=== PATIENT | female | born 1985 | race Caucasian/White ===

== ENCOUNTER 2022-03-14 11:37 | Emergency (ER) | payer OTHER, SELFPAY ==
[2022-03-14 11:45] VITALS: BP 184/106; PULSE 82; RESP 16; TEMP 36.2; O2SAT 97; BMI 53.1
--- NOTE | 2022-03-14 14:11 | ED.HA ---
HPI - Headache General Chief Complaint: Headache Stated Complaint: severe migraine for 3days Time Seen by Provider: 03/14/22 14:05 History of Present Illness HPI Narrative: Linda Gonzalez is a 36-year-old woman with chronic about a week ago she developed sinus symptoms and developed a sinus headache associated with it. She said after the 1st few days this turned into a cough the cough exacerbated the headache and for the past 3 days she describes what she characterizes as a ?full-blown migraine? she says that she is used Imitrex and Zofran to no effect. She denies any recent injury. She denies fever. She denies any neurologic symptoms other than visual scotomata that she commonly has with her migraine. She endorses significant nausea and repeated vomiting. Related Data Previous Rx's Medication Instructions Recorded metoclopramide HCl 10 mg tablet 10 mg PO Q6H PRN nausea and 03/14/22 (Reglan) vomiting #10 tabs Review of Systems Review of Systems Narrative: Complete review of systems is negative other than as noted above. Exam Narrative Exam Narrative: GENERAL: Alert, cooperative and in no distress. HEAD: Atraumatic. Normocephalic. EYES: Sclera are clear without icterus. Extraocular movements are full. ENT: No rhinorrhea. Oropharynx is moist. Mouth exam is benign. NECK: Supple. Full range of motion. CARDIOVASCULAR: Normal rate and rhythm without murmur gallop or rub. RESPIRATORY: Clear to auscultation. Breath sounds equal bilaterally. No wheezes, rales, or rhonchi. GASTROINTESTINAL: Abdomen soft, non-tender, nondistended. EXTREMITIES: No edema, full range of motion. No obvious trauma. BACK: Normal inspection, no CVA tenderness. NEURO: Nonfocal examination, normal speech, normal gait. Cranial nerves are intact. Coordination in the upper extremities is normal, gait is normal SKIN: No rash or erythema of visible areas PSYCH: Normally oriented. Normal range of affect. Appropriate behavior Initial Vital Signs Initial Vital Signs: Vital Signs Temperature 97.2 F L 03/14/22 11:45 Pulse Rate 82 03/14/22 11:45 Respiratory Rate 16 03/14/22 11:45 Blood Pressure 184/106 H 03/14/22 11:45 Pulse Oximetry 97 03/14/22 11:45 Oxygen Delivery Method 03/14/22 11:45 Course Course Course Narrative: Current time is 3:15 p.m.. She is moderately improved but still hurting quite a bit. Saline is only about 50% infused. Will add Toradol at this point. Orders Ordered: Discontinued Medications Acetaminophen (Acetaminophen 325 Mg Tablet) 975 mg PO NOW ONE Stop: 03/14/22 14:11 Last Admin: 03/14/22 14:30 Dose: 975 mg Documented By: CTS Diphenhydramine HCl (Diphenhydramine 50 Mg/Ml Vial) 25 mg IV NOW ONE Stop: 03/14/22 14:11 Last Admin: 03/14/22 14:30 Dose: 25 mg Documented By: CTS Sodium Chloride (Normal Saline 0.9%) 1,000 mls @ 1,000 mls/hr IV BOLUS ONE Stop: 03/14/22 15:09 Last Admin: 03/14/22 14:30 Dose: 1,000 mls/hr Documented By: CTS Ketorolac Tromethamine (Ketorolac 30 Mg/Ml Vial) 30 mg IV NOW ONE Stop: 03/14/22 15:14 Last Admin: 03/14/22 15:21 Dose: 30 mg Documented By: SB Metoclopramide HCl (Metoclopramide 10 Mg/2 Ml Inj) 10 mg IV NOW ONE Stop: 03/14/22 14:11 Last Admin: 03/14/22 14:30 Dose: 10 mg Documented By: CTS Reevaluation(s) Reevaluation #1: Re-evaluation just now at 4:01 p.m. patient is feeling moderately improved. She would like to go home at this point. Vital Signs Vital signs: Vital Signs - 8 hr 03/14/22 11:45 Temperature 97.2 F L Pulse Rate 82 Respiratory Rate 16 Blood Pressure 184/106 H Pulse Oximetry 97 Oxygen Delivery Method Room Air MDM - Headache MDM Narrative Medical decision making narrative: No acute neurologic condition is suspected at this time. She is a normal nonfocal neurologic examination. She is a history of migraine. I think treatment for same is appropriate. She is moderately improved with treatments offered here today. Careful return precautions given. Discharge Plan Departure Patient Disposition: Home Clinical Impression: Migraine Instructions: DI for Migraine Activity Restrictions/Additional Instructions: In the emergency department today you received Tylenol, metoclopramide, Benadryl, IV saline and IV ketorolac. At home I recommend at least 3 L of oral liquid daily along with metoclopramide 10 mg every 6 hours as needed and Tylenol 1000 mg taken together with ibuprofen 600 mg every 6 hours. Make sure getting lots of extra rest and stay out of the bright light. Follow-up with your doctor in a couple of days if things are not dramatically improved. Return to the emergency department for new or worsening symptoms as described. Prescriptions: New metoclopramide HCl [Reglan] 10 mg tablet 10 mg PO Q6H PRN (Reason: nausea and vomiting) Qty: 10 0RF
[2022-03-14] MEDS: ACETAMINOPHEN 325 MG TABLET 975 MG PO (14:30)
[2022-03-14] MEDS: SODIUM CHLORIDE 0.9% 1,000 ML 1000 ML IV (14:30)
[2022-03-14] MEDS: METOCLOPRAMIDE 10 MG/2 ML INJ IV (14:30)
[2022-03-14] MEDS: diphenhydrAMINE 50 MG/ML VIAL 25 MG IV (14:30)
[2022-03-14] MEDS: KETOROLAC 30 MG/ML VIAL IV (15:21)
[2022-03-14 15:35] VITALS: BP 143/95; PULSE 63; O2SAT 100
== END 2022-03-14 16:23 | disposition home or self-care (01) ==
PROVIDERS: Emergency Provider Family Medicine Addiction Medicine
DX: G43.909 Migraine, unspecified, not intractable, without status migrainosus (principal)
CPT/HCPCS: 36415; 96361; 96374; 96375; 99284; J1200; J1885; J2765

== ENCOUNTER → 2024-04-01 07:22 | Outpatient (CLI) | payer OTHER, SELFPAY ==
[2024-04-01 08:30] LABS: Add Manual Diff / Slide Review NO; Basophils Absolute Auto 100 /uL (0-100); Basophils Percent Auto 0.6 % (0-2); Eosinophils Absolute Auto 100 /uL (0-450); Hematocrit 40.2 % (36-46); Hemoglobin 13.8 g/dL (12.0-16.0); Lymphocytes Absolute Auto 1900 /uL (1100-4500); Lymphocytes Percent Auto 18.3 % (25-40); Mean Corpuscular HGB Conc 34.2 % (30-36); Mean Corpuscular Hemoglobin 30.9 PG (26-34); Mean Corpuscular Volume 90.4 fL (80-100); Monocytes Absolute Auto 600 /uL (0-900); Monocytes Percent Auto 5.9 % (3-14); Neutrophils Absolute Auto 7800 /uL (1500-7000); Neutrophils Percent Auto 74.2 % (50-75); Platelet Count 361 X10^3/uL (150-400); Red Blood Cell Count 4.44 X10^6/uL (4.0-5.2); Red Cell Distribution Width 13.7 % (11.6-14.8); White Blood Cell Count 10.5 X10^3/uL (4.5-11.0)
[2024-04-01 08:39] LABS: Hemoglobin A1C% w Est Avg Glu 5.4 % (4.0-6.0)
[2024-04-01 08:53] LABS: Alanine Aminotransferase 12 IU/L (<35); Albumin 3.8 g/dL (3.5-5.0); Albumin Globulin Ratio 1.2 (1.0-2.8); Alkaline Phosphatase 80 U/L (38-126); Aspartate Aminotransferase 15 IU/L (14-36); BUN Creatinine Ratio 18.2 (6-22); Bilirubin Total 0.4 mg/dL (0.2-1.3); Blood Urea Nitrogen 14 mg/dL (7-17); Carbon Dioxide 21 mmol/L (22-32); Chloride 109 mmol/L (98-107); Cholesterol 249 mg/dL (140-199); Estimated Glomerular Filt Rate > 60 mL/min (>60); Globulin 3.1 g/dL (1.7-4.1); Glucose 99 mg/dL (70-100); HDL Cholesterol 40 mg/dL (40-60); HEMOLYSIS < 15 (0-50); LDL Cholesterol Calculated 178 mg/dL (<100); Potassium 4.2 mmol/L (3.4-5.1); Sodium 138 mmol/L (137-145); Total Protein 6.9 g/dL (6.3-8.2); Triglycerides 155 mg/dL (35-150)
[2024-04-01 09:09] LABS: Free T4, Direct Thyroxine 1.21 ng/dL (0.78-2.19)
[2024-04-01 09:22] LABS: Thyroid Stimulating Hormone 0.841 uIU/mL (0.47-4.68)
== END ==
PROVIDERS: PCP Student in an Organized Health Care Education/Training Program; Referring Provider Student in an Organized Health Care Education/Training Program; Visit Provider Student in an Organized Health Care Education/Training Program
DX: R63.5 Abnormal weight gain (principal); R53.83 Other fatigue
CPT/HCPCS: 36415; 80053; 80061; 83036; 84439; 84443; 84481; 85025

== ENCOUNTER → 2024-04-17 19:53 | Outpatient (CLI) | payer OTHER, SELFPAY | PROVIDERS: PCP Student in an Organized Health Care Education/Training Program; Referring Provider Internal Medicine; Visit Provider Internal Medicine | DX: Z23 Encounter for immunization (principal) | CPT/HCPCS: 90471; 90656 ==

== ENCOUNTER → 2024-05-09 15:56 | Outpatient (CLI) | payer OTHER, SELFPAY ==
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
== END ==
PROVIDERS: PCP Student in an Organized Health Care Education/Training Program; Referring Provider Student in an Organized Health Care Education/Training Program
DX: E66.813 Obesity, class 3 (principal); Z71.3 Dietary counseling and surveillance; Z68.42 Body mass index [BMI] 45.0-49.9, adult
CPT/HCPCS: 97802